=== PATIENT | female | born 1985 | race Asian ===

== ENCOUNTER → 2016-09-02 | Outpatient (CLI) | payer OTHER ==
--- NOTE | ~2016-09-02 | US98 ---
[facility] A Service of [facility] & [facility] RADIOLOGY TEXT RESULTS PATIENT: FELY HUI LOCATION: [facility] : [birth year] UNIT #: [id number] AGE: [address]: IRINA JENNINGS SEX: F ORDER DR: [id number] [facility] [address] [place], [place] [address] [id number] O MR#: [id number] Acc #: [id number] NAME: FELY HUI : 1985 SEX: F STUDY DATE/TIME: 09/02/2016 8:46 UNIT: [facility] ROOM: STUDY DESCRIPTION: US Pelvic Non-OB Complete Attending Physician: Irina Jennings M.D. Referring Physician: Lila Narayan Aprn Ordering Physician: Irina Jennings M.D. Primary Care Physician: Lila Narayan Aprn MEDICAL IMAGING REPORT This report is preliminary unless electronic signature is present EXAM Pelvic ultrasound transabdominal and transvaginal technique 09/02/2016 INDICATIONS 30-year-old female with pelvic pain to the left and in the midline with a stretching sensation. Symptoms have been ongoing for the past 2-3 weeks. Intermittent in nature. Irregular bleeding in early August. Distension and bloating. Stomach and abdominal pain. TECHNIQUE Sonographic imaging of the pelvis was performed transabdominally and transvaginally for better evaluation of adnexa and ovarian structures. No comparisons. FINDINGS Transabdominal imaging: The uterus demonstrates heterogeneous echotexture peripherally, transabdominally, better characterized transvaginally. Endometrial stripe is in top range of normal at thickness of about 1.4 cm. The right ovary is only seen transabdominally. It measures about 2.4 x 2.3 x 2 cm and demonstrates good flow at the time of the study. The left ovary is seen transabdominally and better characterized transvaginally. Transvaginal imaging: Uterine dimensions are about 8.9 x 5.8 x 5 cm. Endometrial stripe measures between 1-2 and 1.4 cm. Associated with the anterior and posterior aspects of the endometrium are curvilinear serpiginous areas of decreased echogenicity which with the benefit of color flow imaging are most characteristic of prominent venous vessels associated with the myometrium. This is seen in addition to the endometrial thickening and prominent vessels in the adnexa primarily on the right and also on the left. Imaging features are most characteristic of pelvic congestion syndrome which can be associated with pelvic pain in a young female patients. [facility] A Service of [facility] & [facility] RADIOLOGY TEXT RESULTS PATIENT: FELY HUI LOCATION: [facility] : [birth year] UNIT #: [id number] AGE: [address]: IRINA JENNINGS SEX: F ORDER DR: The left ovary dimensions are best demonstrated transabdominally at 3.7 x 5.6 x 2.6 cm. There are follicles in the left ovary. There is a cyst in the left ovary measuring up to about 3.7 x 2.6 cm with a thickened septation that appears to be mobile on sonographic imaging. There is no internal color flow within the septation and this probably represents a physiologic proteinaceous or hemorrhagic cyst. There is increased through transmission. Ultrasound followup in 6-8 weeks is however recommended for reassessment of stability or interval decrease in size after subsequent menstrual cycles. No drainable fluid collection in the pelvis. IMPRESSION 1. Imaging features most characteristic of pelvic congestion syndrome which can be a source of pain in young females. 2. Endometrial stripe is top normal in thickness. This can also be associated with pelvic congestion syndrome. 3. Both ovaries demonstrate good flow at the time of the study. There is a probably benign hemorrhagic or proteinaceous cyst in the left ovary measuring up to 3.7 cm. Followup ultrasound after subsequent menstrual cycles in 6-8 weeks is recommended for reassessment. Dictated by... Karl Chris M.D. THIS IS AN ELECTRONICALLY VERIFIED REPORT Karl Chris M.D. at 09/02/2016 5:00 PM Robi TD: 09/02/2016 11:01 JOB #: [id number] MEDICAL IMAGING REPORT Page 1 of 1 COPY
== END | disposition home or self-care (01) ==
LOC: CWCC 08:28
DX: R10.2 Pelvic and perineal pain (principal)
CPT/HCPCS: 76830; 76856

== ENCOUNTER → 2016-11-03 | Outpatient (CLI) | payer OTHER ==
--- NOTE | ~2016-11-03 | US98 ---
[facility] A Service of [facility] RADIOLOGY TEXT RESULTS PATIENT: FELY HUI LOCATION: [facility] : 89 UNIT #: [id number] AGE: [address]: LILA CASTELLANOS APRN SEX: F ORDER DR: [id number] [address] [address] [id number] O MR#: [id number] Acc #: [id number] NAME: FELY HUI : 1985 SEX: F STUDY DATE/TIME: 11/03/2016 12:55 UNIT: [facility] ROOM: STUDY DESCRIPTION: US Pelvic Non-OB Complete Attending Physician: Lila Castellanos Aprn Referring Physician: Lila Castellanos Aprn Ordering Physician: Lila Castellanos Aprn Primary Care Physician: Lila Castellanos Aprn MEDICAL IMAGING REPORT This report is preliminary unless electronic signature is present. EXAM Pelvic ultrasound HISTORY Follow up left ovarian cyst. Continuation of pelvic pain. COMPARISON STUDIES 09/02/2016, which showed a cyst in the left ovary. FINDINGS Transabdominal and transvaginal imaging was performed. The uterus is about 8.6 x 4.7 x 6.5 cm. The endometrial tissue appears to be 12 mm thickness on the transabdominal images. Right ovary is 2.5 cm in size and has normal flow. The left ovary is 2 cm in size and appears normal with normal flow. On transvaginal images, the endometrial tissue is only about 4 mm in thickness. Left ovary is clearly seen and has small follicles within it and appears normal. The right ovary is not seen on the transvaginal. IMPRESSION Normal pelvic ultrasound. The cystic area noted in the left ovary in August 2016 has resolved. Dictated by... Augusto Suárez M.D. THIS IS AN ELECTRONICALLY VERIFIED REPORT Augusto Suárez M.D. at 11/05/2016 7:14 AM [facility] A Service [facility] RADIOLOGY TEXT RESULTS PATIENT: FELY HUI LOCATION: [facility] : [birth year] UNIT #: [id number] AGE: [address]: LILA CASTELLANOS APRN SEX: F ORDER DR: ELVIS/adin TD: 11/04/2016 22:13 JOB #: [id number] MEDICAL IMAGING REPORT Page 1 of 1
== END | disposition home or self-care (01) ==
LOC: SGUS 12:52
DX: N83.202 Unspecified ovarian cyst, left side (principal)
CPT/HCPCS: 76830; 76856